=== PATIENT | male | born 1965 | race American Indian/Alaskan Native ===

== ENCOUNTER 2019-09-14 00:11 | Inpatient (IN) | payer MEDICARE ==
[2019-09-14 00:51] LABS: Hematocrit 38.7 % (35.5-45.6); Hemoglobin 13.4 gm/dl (11.8-15.2); Mean Corpuscular HGB Conc 35 % (32-34); Mean Corpuscular Volume 90 fl (84-94); Platelet Count 215 K/mm3 (140-440); Red Blood Count 4.28 M/mm3 (3.65-5.03); Red Cell Distribution Width 14.4 % (13.2-15.2)
[2019-09-14 01:02] LABS: INR 0.93 (0.87-1.13); Partial Thromboplastin Time 29.7 Sec. (24.2-36.6)
[2019-09-14 01:05] LABS: BUN/Creatinine Ratio 12; Blood Urea Nitrogen 11 mg/dL (9-20); Calcium 9.4 mg/dL (8.4-10.2); Hemolysis Index 7
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
[2019-09-14 02:15] LABS: Amphetamine Screen,Urine PRESUMPTIVE NEGATIVE; Benzodiazepines Screen,Urine PRESUMPTIVE NEGATIVE; Cannabinoid Screen,Urine PRESUMPTIVE NEGATIVE; Cocaine Screen,Urine PRESUMPTIVE NEGATIVE; Methadone Screen,Urine PRESUMPTIVE NEGATIVE; Opiate Screen,Urine PRESUMPTIVE NEGATIVE
--- NOTE | 2019-09-14 02:39 | Cat Scan Report ---
CT HEAD WITHOUT CONTRAST INDICATION : Headache. Weakness. TECHNIQUE: Axial, coronal and sagittal CT imaging was performed from the skull apex through the skul l base without contrast. All CT scans at this location are performed using CT dose reduction for ALA RA by means of automated exposure control. COMPARISON: CT head without contrast from 08/31/2015. FINDINGS: PARENCHYMA: No mass, midline shift, hemorrhage, extraaxial collection or acute territorial infarctio n. VENTRICLES: Symmetric and normal in size. SOFT TISSUES: Soft tissues including the orbits appear normal. BONES: No acute osseous abnormality. SINUSES: No significant abnormality. ADDITIONAL FINDINGS: None. IMPRESSION: 1. No acute abnormality. Signer Name: Kameron Villa MD Signed: 09/14/2019 2:34 AM Workstation Name: [email or web address]
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
[2019-09-14 02:47] LABS: Band Neutrophils # (Manual) 0.1 K/mm3; Total Cells Counted 100
[2019-09-14 02:48] LABS: Anisocytosis Few; Large Platelets Few; Ovalocytes Few; Platelet Estimate Cons; Stomatocytes Rare
--- NOTE | 2019-09-14 07:20 | History and Physical Report ---
History of Present Illness Date of examination: 09/14/19 Date of admission: 09/14/19 02:43 Chief complaint: chest pain History of present illness: Patient is a 53-year-old male with past medical history of tobacco use disorder, sinus bradycardia, seizure disorder, diabetes mellitus, prior history of CVA, and acute MA per the patient's but no intervention at the time. Currently on disability secondary to chronic back pain who presents to the ED with complaints of chest pain that was debilitating that prevented him from going to the bathroom made him weak and he had to sit down. EMS was called and he was presented to the hospital the patient denied any syncopal episode at this time he stated at first he could not remember if he passed out but he knew that if he continued to ambulate he would have passed out. During my examination the patient reports improvement in the chest pain with the nitro that he received in the ED. He denies any diaphoresis at this time orthopnea or PND while he is laying down at my examination. Past History Past Medical History: arthritis, diabetes, seizures, other (Gout, chronic back pain) Past Surgical History: cholecystectomy Social history: , smoking Family history: no significant family history Medications and Allergies Allergies Allergy/AdvReac Type Severity Reaction Status Date / Time No Known Allergies Allergy Verified 09/28/15 23:24 Home Medications Medication Instructions Recorded Confirmed Last Taken Type amLODIPine 10 mg PO DAILY 10/02/13 12/28/15 12/27/15 History Meloxicam 15 mg PO QDAY 08/31/15 12/28/15 12/27/15 History Tizanidine HCl [tiZANidine] 10 mg PO DAILY 08/31/15 12/28/15 12/27/15 History HYDROcodone/APAP 10-325 [[place] 1 each PO Q8HR PRN #20 tablet 09/29/15 12/28/15 Unknown Rx 10/325] Lovastatin [Altoprev] 40 mg PO QPM 09/29/15 12/28/15 12/27/15 History Ciprofloxacin HCl [Ciprofloxacin 500 mg PO Q12H #20 tab 12/28/15 Unknown Rx TAB] hydroCHLOROthiazide [HCTZ] 25 mg PO QDAY 12/28/15 12/28/15 12/27/15 History metroNIDAZOLE [Flagyl] 500 mg PO Q8HR #30 tablet 12/28/15 Unknown Rx Review of Systems Constitutional: fatigue, weakness, no weight loss, no weight gain, no fever, no sweats, no malaise, no lethargy Cardiovascular: chest pain, shortness of breath, dyspnea on exertion, no palpitations, no edema, no syncope, no paroxysmal nocturnal dyspnea, no high blood pressure Respiratory: shortness of breath, dyspnea on exertion, no cough with sputum, no hemoptysis, no wheezing, no pleurisy, no pain on inspiration, no respiratory infections, no home oxygen Gastrointestinal: no vomiting, no constipation, no melena, no early satiety, no indigestion, no dyspepsia/bloating Genitourinary Male: no hematuria, no flank pain, no urinary hesitancy Rectal: no incontinence Musculoskeletal: no shooting arm pain, no low back pain, no muscle weakness Integumentary: no redness, no wounds, no lesions, no acne, no color changes Neurological: no weakness, no numbness, no tingling, no sensory deficit, no hearing difficulties Psychiatric: no sleep disturbances, no change in libido, no suicidal ideation, no anhedonia, no difficulties concentrating Endocrine: no cold intolerance, no excessive thirst, no nocturia, no thyroid mass Hematologic/Lymphatic: no easy bleeding Allergic/Immunologic: no allergic rhinitis, no anaphylaxis Exam - Physical Exam Narrative exam: VITAL SIGNS: Reviewed. GENERAL: The patient appears normally developed, Vital signs as documented. HEAD: No signs of head trauma. EYES: Pupils are equal. Extraocular motions intact. EARS: Hearing grossly intact. MOUTH: Oropharynx is normal. NECK: No adenopathy, no JVD. CHEST: Chest with clear breath sounds bilaterally. No wheezes, rales, or rh onchi. CARDIAC: Regular rate and rhythm. S1 and S2, without murmurs, gallops, or rubs. VASCULAR: No Edema. Peripheral pulses normal and equal in all extremities. ABDOMEN: Soft, non tender and non distended. No rebound or guarding, and no masses palpated. Bowel Sounds normal. MUSCULOSKELETAL: Good range of motion of all major joints. Extremities without clubbing, cyanosis or edema. NEUROLOGIC EXAM: Alert and oriented x 3 No focal sensory or strength deficits. Speech normal. Follows commands. PSYCHIATRIC: Mood normal. SKIN: detial exam as documented in skin assessment - Constitutional Vitals: Temp Pulse Resp BP Pulse Ox 97.9 F 49 L 22 113/63 99 09/14/19 04:46 09/14/19 04:50 09/14/19 04:53 09/14/19 04:45 09/14/19 04:45 Results - Labs CBC & Chem 7: 09/14/19 07:24 09/14/19 07:24 Labs: Laboratory Last Values WBC 5.6 K/mm3 (4.5-11.0) 09/14/19 00:37 RBC 4.28 M/mm3 (3.65-5.03) 09/14/19 00:37 Hgb 13.4 gm/dl (11.8-15.2) 09/14/19 00:37 Hct 38.7 % (35.5-45.6) 09/14/19 00:37 MCV 90 fl (84-94) 09/14/19 00:37 MCH 31 pg (28-32) 09/14/19 00:37 MCHC 35 % (32-34) H 09/14/19 00:37 RDW 14.4 % (13.2-15.2) 09/14/19 00:37 Plt Count 215 K/mm3 (140-440) 09/14/19 00:37 Lymph % (Auto) Calender Runner 09/14/19 00:37 Add Manual Diff Complete 09/14/19 00:37 Total Counted 100 09/14/19 00:37 Seg Neutrophils % Calender Runner 09/14/19 00:37 Seg Neuts % (Manual) 29.0 % (40.0-70.0) L 09/14/19 00:37 Band Neutrophils % 1.0 % 09/14/19 00:37 Lymphocytes % (Manual) 62.0 % (13.4-35.0) H 09/14/19 00:37 Reactive Lymphs % (Man) 0 % 09/14/19 00:37 Monocytes % (Manual) 3.0 % (0.0-7.3) 09/14/19 00:37 Eosinophils % (Manual) 4.0 % (0.0-4.3) 09/14/19 00:37 Basophils % (Manual) 1.0 % (0.0-1.8) 09/14/19 00:37 Metamyelocytes % 0 % 09/14/19 00:37 Myelocytes % 0 % 09/14/19 00:37 Promyelocytes % 0 % 09/14/19 00:37 Blast Cells % 0 % 09/14/19 00:37 Nucleated RBC % Not Reportable 09/14/19 00:37 Seg Neutrophils # Man 1.6 K/mm3 (1.8-7.7) L 09/14/19 00:37 Band Neutrophils # 0.1 K/mm3 09/14/19 00:37 Lymphocytes # (Manual) 3.5 K/mm3 (1.2-5.4) 09/14/19 00:37 Abs React Lymphs (Man) 0.0 K/mm3 09/14/19 00:37 Monocytes # (Manual) 0.2 K/mm3 (0.0-0.8) 09/14/19 00:37 Eosinophils # (Manual) 0.2 K/mm3 (0.0-0.4) 09/14/19 00:37 Basophils # (Manual) 0.1 K/mm3 (0.0-0.1) 09/14/19 00:37 Metamyelocytes # 0.0 K/mm3 09/14/19 00:37 Myelocytes # 0.0 K/mm3 09/14/19 00:37 Promyelocytes # 0.0 K/mm3 09/14/19 00:37 Blast Cells # 0.0 K/mm3 09/14/19 00:37 WBC Morphology Not Reportable 09/14/19 00:37 Hypersegmented Neuts Not Reportable 09/14/19 00:37 Hyposegmented Neuts Not Reportable 09/14/19 00:37 Hypogranular Neuts Not Reportable 09/14/19 00:37 Smudge Cells Not Reportable 09/14/19 00:37 Toxic Granulation Not Reportable 09/14/19 00:37 Toxic Vacuolation Not Reportable 09/14/19 00:37 Dohle Bodies Not Reportable 09/14/19 00:37 Pelger-Huet Anomaly Not Reportable 09/14/19 00:37 Jamar Rods Not Reportable 09/14/19 00:37 Platelet Estimate Cons 09/14/19 00:37 Clumped Platelets Not Reportable 09/14/19 00:37 Plt Clumps, EDTA Not Reportable 09/14/19 00:37 Large Platelets Few 09/14/19 00:37 Giant Platelets Not Reportable 09/14/19 00:37 Platelet Satelliting Not Reportable 09/14/19 00:37 Plt Morphology Comment Not Reportable 09/14/19 00:37 RBC Morphology Not Reportable 09/14/19 00:37 Dimorphic RBCs Not Reportable 09/14/19 00:37 Polychromasia Not Reportable 09/14/19 00:37 Hypochromasia Not Reportable 09/14/19 00:37 Poikilocytosis Not Reportable 09/14/19 00:37 Anisocytosis Few 09/14/19 00:37 Microcytosis Not Reportable 09/14/19 00:37 Macrocytosis Not Reportable 09/14/19 00:37 Spherocytes Not Reportable 09/14/19 00:37 Pappenheimer Bodies Not Reportable 09/14/19 00:37 Sickle Cells Not Reportable 09/14/19 00:37 Target Cells Not Reportable 09/14/19 00:37 Tear Drop Cells Not Reportable 09/14/19 00:37 Ovalocytes Few 09/14/19 00:37 Stomatocytes Rare 09/14/19 00:37 Helmet Cells Not Reportable 09/14/19 00:37 [place] Bodies Not Reportable 09/14/19 00:37 Nelson Rings Not Reportable 09/14/19 00:37 Thao Cells Not Reportable 09/14/19 00:37 Bite Cells Not Reportable 09/14/19 00:37 Crenated Cell Not Reportable 09/14/19 00:37 Elliptocytes Not Reportable 09/14/19 00:37 Acanthocytes (Spur) Not Reportable 09/14/19 00:37 Rouleaux Not Reportable 09/14/19 00:37 Hemoglobin C Crystals Not Reportable 09/14/19 00:37 Schistocytes Not Reportable 09/14/19 00:37 Malaria parasites Not Reportable 09/14/19 00:37 Kartik Bodies Not Reportable 09/14/19 00:37 Hem Pathologist Commnt No 09/14/19 00:37 PT 12.6 Sec. (12.2-14.9) 09/14/19 00:37 INR 0.93 (0.87-1.13) 09/14/19 00:37 APTT 29.7 Sec. (24.2-36.6) 09/14/19 00:37 Sodium 143 mmol/L (137-145) 09/14/19 00:37 Potassium 4.0 mmol/L (3.6-5.0) 09/14/19 00:37 Chloride 107.5 mmol/L (98-107) H 09/14/19 00:37 Carbon Dioxide 24 mmol/L (22-30) 09/14/19 00:37 Anion Gap 16 mmol/L 09/14/19 00:37 BUN 11 mg/dL (9-20) 09/14/19 00:37 Creatinine 0.9 mg/dL (0.8-1.5) 09/14/19 00:37 Estimated GFR > 60 ml/min 09/14/19 00:37 BUN/Creatinine Ratio 12 % 09/14/19 00:37 Glucose 112 mg/dL (75-100) H 09/14/19 00:37 Calcium 9.4 mg/dL (8.4-10.2) 09/14/19 00:37 Troponin T < 0.010 ng/mL (0.00-0.029) 09/14/19 03:35 Urine Opiates Screen Presumptive negative 09/14/19 01:21 Urine Methadone Screen Presumptive negative 09/14/19 01:21 Ur Barbiturates Screen Presumptive negative 09/14/19 01:21 Ur Phencyclidine Scrn Presumptive negative 09/14/19 01:21 Ur Amphetamines Screen Presumptive negative 09/14/19 01:21 U Benzodiazepines Scrn Presumptive negative 09/14/19 01:21 Urine Cocaine Screen Presumptive negative 09/14/19 01:21 U Marijuana (THC) Screen Presumptive negative 09/14/19 01:21 Drugs of Abuse Note Disclamer 09/14/19 01:21 Plasma/Serum Alcohol < 0.01 % (0-0.07) 09/14/19 00:37 Assessment and Plan Assessment and plan: Patient is a 53-year-old male with past medical history of tobacco use disorder, sinus bradycardia, seizure disorder, diabetes mellitus, prior history of CVA, and acute MA per the patient's but no intervention at the time. Currently on disability secondary to chronic back pain who presents to the ED with complaints of chest pain that was debilitating that prevented him from going to the bathroom made him weak and he had to sit down. EMS was called and he was presented to the hospital the patient denied any syncopal episode at this time he stated at first he could not remember if he passed out but he knew that if he continued to ambulate he would have passed out. During my examination the patient reports improvement in the chest pain with the nitro that he received in the ED. He denies any diaphoresis at this time orthopnea or PND while he is laying down at my examination. Atypical chest pain Near syncope HTN GOUT CHRONIC LOW BACK PAIN DM SEIZURE CHRONIC BRADYCARDIA TOBACCO ABUSE PLAN ADMIT TO TELE CARDIOLOGY CONSULT STRESS TEST CONSIDERING RISK FACTORS START HOME MEDS ACCU CHECKS AND INSULIN THERAPY PAIN CONTROL OBTAIN COMPLET HOME MED LIST TO RECONCILE DVT/GI PROPHY PLAN DISCUSSED WITH THE PATIENT. Advance Directives: Yes Plan of care discussed with patient/family: Yes
[2019-09-14 07:40] LABS: Hemoglobin 12.8 gm/dl (11.8-15.2); Mean Corpuscular HGB Conc 34 % (32-34); Mean Corpuscular Volume 91 fl (84-94); Platelet Count 202 K/mm3 (140-440); Red Blood Count 4.18 M/mm3 (3.65-5.03); Red Cell Distribution Width 14.8 % (13.2-15.2)
[2019-09-14 07:53] LABS: BUN/Creatinine Ratio 14; Blood Urea Nitrogen 11 mg/dL (9-20); Calcium 9.1 mg/dL (8.4-10.2); Chol/HDL Ratio 3.55 %; HDL Cholesterol 43 mg/dL (40-59); Hemolysis Index 92; LDL Cholesterol,Direct 103 mg/dL (50-130)
[2019-09-14 09:23] LABS: Basophils % (Manual) 0 % (0.0-1.8); Total Cells Counted 100
[2019-09-14 09:24] LABS: Anisocytosis Few; Ovalocytes Few
[2019-09-14 09:35] LABS: Large Platelets Few; Platelet Estimate Consistent w Auto
[2019-09-14] MEDS ORDERED: REGADENOSON 0.4 MG/5 ML INJ IV ONE ×2 (09:51)
[2019-09-14] MEDS ORDERED: MELOXICAM 15 MG PO SCH (10:00)
[2019-09-14] MEDS ORDERED: TIZANIDINE HCL PO SCH (10:00)
--- NOTE | 2019-09-14 10:48 | Consultation ---
History of Present Illness Consult date: 09/14/19 Consult reason: chest pain History of present illness: This is a 53- year old man who presents with chest pain. Chest pain is poorly characterized, nonexertional chest pain. In addition, patient reports transient inability to move his lower extremities and dizziness. He denies syncope. Head CT reports no acute intracranial abnormalities. Chest x-ray is negative. Cardiac isoenzymes are normal and her ECG is sinus bradycardia, otherwise no acute ischemic changes. Patient was admitted and is planned for a persantine thallium stress test. Cardiac consultation has been requested. Patient has a long standing history of sinus bradycardia. He is not on any AV purnima blocking agents. There is no prior history of coronary artery disease. 4 years ago he had a normal thallium stress test and a normal left ventricular systolic function, ejection fraction 50-55% by echocardiogram. He denies history of thyroid disease. Co-morbidities include tobacco abuse, hypertension and hyperlipidemia. Medications and Allergies Allergies Allergy/AdvReac Type Severity Reaction Status Date / Time No Known Allergies Allergy Verified 09/28/15 23:24 Home Medications Medication Instructions Recorded Confirmed Last Taken Type amLODIPine 10 mg PO DAILY 10/02/13 12/28/15 12/27/15 History Meloxicam 15 mg PO QDAY 08/31/15 12/28/15 12/27/15 History Tizanidine HCl [tiZANidine] 10 mg PO DAILY 08/31/15 12/28/15 12/27/15 History HYDROcodone/APAP 10-325 [Merriman 1 each PO Q8HR PRN #20 tablet 09/29/15 12/28/15 Unknown Rx 10/325] Lovastatin [Altoprev] 40 mg PO QPM 09/29/15 12/28/15 12/27/15 History Ciprofloxacin HCl [Ciprofloxacin 500 mg PO Q12H #20 tab 12/28/15 Unknown Rx TAB] hydroCHLOROthiazide [HCTZ] 25 mg PO QDAY 12/28/15 12/28/15 12/27/15 History metroNIDAZOLE [Flagyl] 500 mg PO Q8HR #30 tablet 12/28/15 Unknown Rx Active Meds: Active Medications Acetaminophen/Hydrocodone Bitart (Merriman 10/325) 1 each PO Q8HR PRN PRN Reason: PAIN Amlodipine Besylate (Amlodipine) 10 mg PO DAILY [facility] Aspirin (Baby Aspirin) 81 mg PO QDAY [facility] Atorvastatin Calcium (Lipitor) 40 mg PO QHS [facility] Hydrochlorothiazide (Hctz) 25 mg PO QDAY [facility] Meloxicam (Mobic) 15 mg PO QDAY [facility] Pantoprazole Sodium (Protonix) 40 mg PO QDAY [facility] Sodium Chloride (Sodium Chloride Flush Syringe 10 Ml) 10 ml IV PRN PRN PRN Reason: LINE FLUSH Stop: 09/24/19 07:17 Tizanidine HCl (Zanaflex) 10 mg PO DAILY [facility] Physical Examination Vital Signs Temp Pulse Resp BP Pulse Ox 97.7 F 53 L 14 139/77 98 09/14/19 00:23 09/14/19 00:23 09/14/19 00:23 09/14/19 00:23 09/14/19 00:23 General appearance: no acute distress HEENT: Positive: PERRL Neck: Positive: trachea midline Cardiac: Positive: Reg Rate and Rhythm Lungs: Positive: Decreased Breath Sounds Neuro: Positive: Grossly Intact Extremities: Absent: edema Results 09/14/19 07:24 09/14/19 07:24 Coagulation 09/14/19 Range/Units 00:37 PT 12.6 (12.2-14.9) Sec. INR 0.93 (0.87-1.13) APTT 29.7 (24.2-36.6) Sec. Lipids 09/14/19 Range/Units 07:24 Triglycerides 232 H (2-149) mg/dL Cholesterol 153 (50-199) mg/dL HDL Cholesterol 43 (40-59) mg/dL Cholesterol/HDL Ratio 3.55 % CBC 09/14/19 09/14/19 Range/Units 00:37 07:24 WBC 5.6 4.6 (4.5-11.0) K/mm3 RBC 4.28 4.18 (3.65-5.03) M/mm3 Hgb 13.4 12.8 (11.8-15.2) gm/dl Hct 38.7 38.0 (35.5-45.6) % Plt Count 215 202 (140-440) K/mm3 Comprehensive Metabolic Panel 09/14/19 09/14/19 Range/Units 00:37 07:24 Sodium 143 139 (137-145) mmol/L Potassium 4.0 4.5 (3.6-5.0) mmol/L Chloride 107.5 H 104.9 (98-107) mmol/L Carbon Dioxide 24 21 L (22-30) mmol/L BUN 11 11 (9-20) mg/dL Creatinine 0.9 0.8 (0.8-1.5) mg/dL Glucose 112 H 93 (75-100) mg/dL Calcium 9.4 9.1 (8.4-10.2) mg/dL Assessment and Plan Atypical chest pain Chronic sinus bradycardia Hypertension HLP Tobacco abuse MPI 2015: no ischemia Normal left ventricular systolic function, ejection fraction 50-55% by echocardiogram in 2015. Recommendations. Persantine thallium stress test ordered for today. Results are pending. Avoid AV purnima blocking agents due to long standing sinus bradycardia. Check a TSH.
[2019-09-14] MEDS: tiZANidine TAB 4 MG TAB PO SCH (11:47)
[2019-09-14] MEDS: amLODIPine 10 MG TAB PO SCH (11:47)
[2019-09-14] MEDS: PANTOPRAZOLE 40 MG TAB PO SCH (11:48)
[2019-09-14] MEDS: hydroCHLOROthiazide 25 MG TAB PO SCH (11:48)
[2019-09-14] MEDS: MELOXICAM 7.5 MG TAB PO SCH (11:48)
[2019-09-14] MEDS: HEPARIN 5,000 UNIT/1 ML VIAL SUB-Q SCH ×2 (13:54→21:33)
--- NOTE | 2019-09-14 18:13 | Treadmill Report ---
ORDERING PHYSICIAN: Willie Taveras M.D. INDICATION: Chest pain. FINDINGS: There is evidence of a small size fixed defect in the apical and mid inferior wall. There is also evidence of a small size fixed defect in the basal anterior wall. There is no scintigraphic evidence of myocardial ischemia. The left ventricle is mildly dilated. The left ventricular ejection fraction is measured at 55% with normal wall motion. IMPRESSION: 1. Abnormal myocardial perfusion scan revealing a small fixed basal anterior wall defect and a small fixed apical and mid inferior wall defect with no scintigraphic evidence of myocardial ischemia. 2. Mildly dilated left ventricular cavity with a left ventricular ejection fraction measured at 55%. 3. Clinical correlation is warranted. JOB# [id number] DEEPTI/PHI
[2019-09-14] MEDS: HYDROcodone/ACETAMINOPHEN 10-325MG TAB PO PRN (21:33)
[2019-09-15] MEDS: HEPARIN 5,000 UNIT/1 ML VIAL SUB-Q SCH ×3 (05:41→21:45)
[2019-09-15] MEDS: MELOXICAM 7.5 MG TAB PO SCH (10:01)
[2019-09-15] MEDS: tiZANidine TAB 4 MG TAB PO SCH (10:01)
[2019-09-15] MEDS: PANTOPRAZOLE 40 MG TAB PO SCH (10:01)
--- NOTE | 2019-09-15 10:01 | Progress Note ---
Assessment and Plan 1. Atypical chest pain 2. Essential hypertension 3. Hyperlipidemia 4. Abnormal nuclear cardiac imaging Plan. Given abnormal nuclear cardiac imaging which shows changes when compared to stress MPI scan done 4 years ago as well as a change,i.e decrease in LV ejection fraction, a Left heart catheterization is recommended planned for Tuesday Subjective Date of service: 09/15/19 Interval history: No cardiac symptoms Objective Vital Signs Temp Pulse Resp Resp BP BP Pulse Ox 09/15/19 08:04 99.2 F 46 L 18 123/54 95 09/15/19 05:05 97.6 F 47 L 12 113/52 95 09/15/19 04:00 51 L 18 09/15/19 00:42 98.2 F 49 L 16 119/54 95 09/15/19 00:33 20 09/14/19 22:49 99 09/14/19 20:00 56 L 09/14/19 19:23 98.5 F 55 L 16 113/55 96 09/14/19 17:05 97.9 F 49 L 18 113/49 94 09/14/19 16:25 100 09/14/19 12:00 46 L 09/14/19 11:59 98.2 F 46 L 18 122/53 99 09/14/19 10:30 128/69 09/14/19 10:28 123/62 09/14/19 10:26 128/58 09/14/19 10:25 125/70 09/14/19 10:22 125/74 09/14/19 10:21 143/62 09/14/19 10:11 133/70 - Physical Examination General: Appears Well, No Apparent Distress HEENT: Positive: PERRL Neck: Positive: trachea midline Cardiac: Lungs: Neuro: Positive: Grossly Intact Abdomen: /Rectal: Normal Prostate, No Masses Skin: Musculoskeletal: No Fluid Collection, No Pain, Normal Range of Motion Gait: Normal Gait Extremities: Absent: edema
[2019-09-15] MEDS: amLODIPine 10 MG TAB PO SCH (10:02)
[2019-09-15] MEDS: ASPIRIN 81 MG TAB CHEW PO SCH (10:02)
[2019-09-15] MEDS: hydroCHLOROthiazide 25 MG TAB PO SCH (10:03)
--- NOTE | 2019-09-15 13:13 | Progress Note ---
Assessment and Plan Assessment and plan: Patient is a 53-year-old male with past medical history of tobacco use disorder, sinus bradycardia, seizure disorder, diabetes mellitus, prior history of CVA, and acute ME per the patient's but no intervention at the time. Currently on disability secondary to chronic back pain who presents to the ED with complaints of chest pain that was debilitating that prevented him from going to the bathroom made him weak and he had to sit down. EMS was called and he was presented to the hospital the patient denied any syncopal episode at this time he stated at first he could not remember if he passed out but he knew that if he continued to ambulate he would have passed out. During my exam ination the patient reports improvement in the chest pain with the nitro that he received in the ED. He denies any diaphoresis at this time orthopnea or PND while he is laying down at my examination. 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 START HOME MEDS ACCU CHECKS AND INSULIN THERAPY PAIN CONTROL OBTAIN COMPLETE HOME MED LIST TO RECONCILE DVT/GI PROPHY PLAN DISCUSSED WITH THE PATIENT. History Interval history: Patient seen and examined today resting comfortably no acute distress no recurrent chest pain at this time. Hospitalist Physical - Physical exam Narrative exam: VITAL SIGNS: Reviewed. GENERAL: The patient appears normally developed, Vital signs as documented. HEAD: No signs of head trauma. EYES: Pupils are equal. Extraocular motions intact. EARS: Hearing grossly intact. MOUTH: Oropharynx is normal. NECK: No adenopathy, no JVD. CHEST: Chest with clear breath sounds bilaterally. No wheezes, rales, or rhonchi. CARDIAC: Regular rate and rhythm. S1 and S2, without murmurs, gallops, or rubs. VASCULAR: No Edema. Peripheral pulses normal and equal in all extremities. ABDOMEN: Soft, non tender and non distended. No rebound or guarding, and no masses palpated. Bowel Sounds normal. MUSCULOSKELETAL: Good range of motion of all major joints. Extremities without clubbing, cyanosis or edema. NEUROLOGIC EXAM: Alert and oriented x 3 No focal sensory or strength deficits. Speech normal. Follows commands. PSYCHIATRIC: Mood normal. SKIN: detail exam as documented in skin assessment - Constitutional Vitals: Temp Pulse Resp BP Pulse Ox 99.2 F 50 L 18 123/54 95 09/15/19 08:04 09/15/19 10:02 09/15/19 08:04 09/15/19 10:02 09/15/19 08:04 General appearance: Present: no acute distress Results - Labs CBC & Chem 7: 09/14/19 07:24 12 07:24 Labs: Laboratory Last Values WBC 4.6 K/mm3 (4.5-11.0) 09/14/19 07:24 RBC 4.18 M/mm3 (3.65-5.03) 09/14/19 07:24 Hgb 12.8 gm/dl (11.8-15.2) 09/14/19 07:24 Hct 38.0 % (35.5-45.6) 09/14/19 07:24 MCV 91 fl (84-94) 09/14/19 07:24 MCH 31 pg (28-32) 09/14/19 07:24 MCHC 34 % (32-34) 09/14/19 07:24 RDW 14.8 % (13.2-15.2) 09/14/19 07:24 Plt Count 202 K/mm3 (140-440) 09/14/19 07:24 Lymph % (Auto) Direct Support Staff Member 09/14/19 07:24 Add Manual Diff Complete 09/14/19 07:24 Total Counted 100 09/14/19 07:24 Seg Neutrophils % Direct Support Staff Member 09/14/19 07:24 Seg Neuts % (Manual) 33.0 % (40.0-70.0) L 09/14/19 07:24 Band Neutrophils % 0 % 09/14/19 07:24 Lymphocytes % (Manual) 61.0 % (13.4-35.0) H 09/14/19 07:24 Reactive Lymphs % (Man) 0 % 09/14/19 07:24 Monocytes % (Manual) 2.0 % (0.0-7.3) 09/14/19 07:24 Eosinophils % (Manual) 4.0 % (0.0-4.3) 09/14/19 07:24 Basophils % (Manual) 0 % (0.0-1.8) 09/14/19 07:24 Metamyelocytes % 0 % 09/14/19 07:24 Myelocytes % 0 % 09/14/19 07:24 Promyelocytes % 0 % 09/14/19 07:24 Blast Cells % 0 % 09/14/19 07:24 Nucleated RBC % Not Reportable 09/14/19 07:24 Seg Neutrophils # Man 1.5 K/mm3 (1.8-7.7) L 09/14/19 07:24 Band Neutrophils # 0.0 K/mm3 09/14/19 07:24 Lymphocytes # (Manual) 2.8 K/mm3 (1.2-5.4) 09/14/19 07:24 Abs React Lymphs (Man) 0.0 K/mm3 09/14/19 07:24 Monocytes # (Manual) 0.1 K/mm3 (0.0-0.8) 09/14/19 07:24 Eosinophils # (Manual) 0.2 K/mm3 (0.0-0.4) 09/14/19 07:24 Basophils # (Manual) 0.0 K/mm3 (0.0-0.1) 09/14/19 07:24 Metamyelocytes # 0.0 K/mm3 09/14/19 07:24 Myelocytes # 0.0 K/mm3 09/14/19 07:24 Promyelocytes # 0.0 K/mm3 09/14/19 07:24 Blast Cells # 0.0 K/mm3 09/14/19 07:24 WBC Morphology Not Reportable 09/14/19 07:24 Hypersegmented Neuts Not Reportable 09/14/19 07:24 Hyposegmented Neuts Not Reportable 09/14/19 07:24 Hypogranular Neuts Not Reportable 09/14/19 07:24 Smudge Cells Not Reportable 09/14/19 07:24 Toxic Granulation Not Reportable 09/14/19 07:24 Toxic Vacuolation Not Reportable 09/14/19 07:24 Dohle Bodies Not Reportable 09/14/19 07:24 Pelger-Huet Anomaly Not Reportable 09/14/19 07:24 Jamar Rods Not Reportable 09/14/19 07:24 Platelet Estimate Consistent w auto 09/14/19 07:24 Clumped Platelets Not Reportable 09/14/19 07:24 Plt Clumps, EDTA Not Reportable 09/14/19 07:24 Large Platelets Few 09/14/19 07:24 Giant Platelets Not Reportable 09/14/19 07:24 Platelet Satelliting Not Reportable 09/14/19 07:24 Plt Morphology Comment Not Reportable 09/14/19 07:24 RBC Morphology Not Reportable 09/14/19 07:24 Dimorphic RBCs Not Reportable 09/14/19 07:24 Polychromasia Not Reportable 09/14/19 07:24 Hypochromasia Not Reportable 09/14/19 07:24 Poikilocytosis Not Reportable 09/14/19 07:24 Anisocytosis Few 09/14/19 07:24 Microcytosis Not Reportable 09/14/19 07:24 Macrocytosis Not Reportable 09/14/19 07:24 Spherocytes Not Reportable 09/14/19 07:24 Pappenheimer Bodies Not Reportable 09/14/19 07:24 Sickle Cells Not Reportable 09/14/19 07:24 Target Cells Not Reportable 09/14/19 07:24 Tear Drop Cells Not Reportable 09/14/19 07:24 Ovalocytes Few 09/14/19 07:24 Stomatocytes Rare 09/14/19 00:37 Helmet Cells Not Reportable 09/14/19 07:24 Luciano-Bethesda Bodies Not Reportable 09/14/19 07:24 Parsons Rings Not Reportable 09/14/19 07:24 Thao Cells Not Reportable 09/14/19 07:24 Bite Cells Not Reportable 09/14/19 07:24 Crenated Cell Not Reportable 09/14/19 07:24 Elliptocytes Not Reportable 09/14/19 07:24 Acanthocytes (Spur) Not Reportable 09/14/19 07:24 Rouleaux Not Reportable 09/14/19 07:24 Hemoglobin C Crystals Not Reportable 09/14/19 07:24 Schistocytes Not Reportable 09/14/19 07:24 Malaria parasites Not Reportable 09/14/19 07:24 Kartik Bodies Not Reportable 09/14/19 07:24 Hem Pathologist Commnt No 09/14/19 07:24 PT 12.6 Sec. (12.2-14.9) 09/14/19 00:37 INR 0.93 (0.87-1.13) 09/14/19 00:37 APTT 29.7 Sec. (24.2-36.6) 09/14/19 00:37 Sodium 139 mmol/L (137-145) 09/14/19 07:24 Potassium 4.5 mmol/L (3.6-5.0) 09/14/19 07:24 Chloride 104.9 mmol/L (98-107) 09/14/19 07:24 Carbon Dioxide 21 mmol/L (22-30) L 09/14/19 07:24 Anion Gap 18 mmol/L 09/14/19 07:24 BUN 11 mg/dL (9-20) 09/14/19 07:24 Creatinine 0.8 mg/dL (0.8-1.5) 09/14/19 07:24 Estimated GFR > 60 ml/min 09/14/19 07:24 BUN/Creatinine Ratio 14 % 09/14/19 07:24 Glucose 93 mg/dL (75-100) 09/14/19 07:24 POC Glucose 72 (70-105) 09/15/19 08:10 Calcium 9.1 mg/dL (8.4-10.2) 09/14/19 07:24 Magnesium 2.10 mg/dL (1.7-2.3) 09/14/19 11:18 Troponin T < 0.010 ng/mL (0.00-0.029) 09/14/19 03:35 Triglycerides 232 mg/dL (2-149) H 09/14/19 07:24 Cholesterol 153 mg/dL (50-199) 09/14/19 07:24 LDL Cholesterol Direct 103 mg/dL (50-130) 09/14/19 07:24 HDL Cholesterol 43 mg/dL (40-59) 09/14/19 07:24 Cholesterol/HDL Ratio 3.55 % 09/14/19 07:24 TSH 1.300 mlU/mL (0.270-4.200) 09/14/19 11:18 Free T4 1.08 ng/dL (0.76-1.46) 09/14/19 11:18 Urine Opiates Screen Presumptive negative 09/14/19 01:21 Urine Methadone Screen Presumptive negative 09/14/19 01:21 Ur Barbiturates Screen Presumptive negative 09/14/19 01:21 Ur Phencyclidine Scrn Presumptive negative 09/14/19 01:21 Ur Amphetamines Screen Presumptive negative 09/14/19 01:21 U Benzodiazepines Scrn Presumptive negative 09/14/19 01:21 Urine Cocaine Screen Presumptive negative 09/14/19 01:21 U Marijuana (THC) Screen Presumptive negative 09/14/19 01:21 Drugs of Abuse Note Disclamer 09/14/19 01:21 Plasma/Serum Alcohol < 0.01 % (0-0.07) 09/14/19 00:37 Active Medications - Current Medications Current Medications: Generic Name Dose Route Start Last Admin Trade Name Freq PRN Reason Stop Dose Admin Acetaminophen/Hydrocodone Bitart 1 each 09/14/19 07:20 09/14/19 21:33 Leiter 10/325 PO 1 each Q8HR PRN Administration PAIN Amlodipine Besylate 10 mg 09/14/19 10:00 09/15/19 10:02 Amlodipine PO 10 mg DAILY [facility] Administration Aspirin 81 mg 09/15/19 10:00 09/15/19 10:02 Baby Aspirin PO 81 mg QDAY [facility]HI Administration Atorvastatin Calcium 40 mg 09/14/19 22:00 09/14/19 21:33 Lipitor PO 40 mg QHS [facility]HI Administration Heparin Sodium (Porcine) 5,000 unit 09/14/19 14:00 09/15/19 05:41 Heparin SUB-Q 5,000 unit Q8HR ABHI Administration Hydrochlorothiazide 25 mg 09/14/19 10:00 09/15/19 10:03 Hctz PO 25 mg QDAY ABHI Administration Meloxicam 15 mg 09/14/19 10:00 09/15/19 10:01 Mobic PO Not Given QDAY [facility] Pantoprazole Sodium 40 mg 09/14/19 10:00 09/15/19 10:01 Protonix PO 40 mg QDAY [facility]HI Administration Sodium Chloride 10 ml 09/14/19 07:18 09/15/19 10:05 Sodium Chloride Flush Syringe 10 Ml IV 09/24/19 07:17 10 ml PRN PRN Administration LINE FLUSH Tizanidine HCl 10 mg 09/14/19 10:00 09/15/19 10:01 Zanaflex PO 10 mg DAILY [facility] Administration
[2019-09-15] MEDS: HYDROcodone/ACETAMINOPHEN 10-325MG TAB PO PRN (21:44)
[2019-09-16] MEDS: HEPARIN 5,000 UNIT/1 ML VIAL SUB-Q SCH ×3 (05:31→22:01)
--- NOTE | 2019-09-16 10:21 | Progress Note ---
Assessment and Plan 1. Atypical chest pain 2. Essential hypertension 3. Hyperlipidemia 4. Abnormal nuclear cardiac imaging Plan. Given abnormal nuclear cardiac imaging which shows changes when compared to stress MPI scan done 4 years ago as well as a change,i.e decrease in LV ejection fraction, a Left heart catheterization is recommended planned for Tuesday Subjective Date of service: 09/16/19 Interval history: No cardiac symptoms Objective Vital Signs Temp Pulse Pulse Resp BP Pulse Ox 09/16/19 09:12 96 09/16/19 08:36 98.4 F 53 L 18 113/70 96 09/16/19 05:13 97.8 F 09/16/19 05:12 49 L 20 119/71 100 09/16/19 04:00 49 L 09/16/19 00:05 98.4 F 09/16/19 00:04 50 L 18 119/60 97 09/15/19 22:00 97 09/15/19 20:38 20 09/15/19 20:33 97.4 F L 09/15/19 20:32 53 L 20 104/60 98 09/15/19 20:00 51 L 09/15/19 16:55 97.9 F 48 L 18 114/42 98 09/15/19 16:00 50 L 20 100 09/15/19 12:01 49 L 103/36 98 09/15/19 12:00 47 L - Physical Examination General: Appears Well, No Apparent Distress HEENT: Positive: PERRL Neck: Positive: trachea midline Cardiac: Positive: Regular Rate, S1/S2, PMI, Laterally Displaced Lungs: Positive: clear to auscultation, No Wheeze, Rales, Rhonchi Neuro: Positive: Grossly Intact Abdomen: /Rectal: Normal Prostate, No Masses Skin: Musculoskeletal: No Fluid Collection, No Pain, Normal Range of Motion Gait: Normal Gait Extremities: Absent: edema
[2019-09-16] MEDS ORDERED: SODIUM CHLORIDE 0.9% 500 ML 500 ML IV ONE (11:27)
--- NOTE | 2019-09-16 15:25 | Progress Note ---
Assessment and Plan Assessment and plan: Patient is a 53-year-old male with past medical history of tobacco use disorder, sinus bradycardia, seizure disorder, diabetes mellitus, prior history of CVA, and acute [place] per the patient's but no intervention at the time. Currently on disability secondary to chronic back pain who presents to the ED with complaints of chest pain that was debilitating that prevented him from going to the bathroom made him weak and he had to sit down. EMS was called and he was presented to the hospital the patient denied any syncopal episode at this time he stated at first he could not remember if he passed out but he knew that if he continued to ambulate he would have passed out. During my exam ination the patient reports improvement in the chest pain with the nitro that he received in the ED. He denies any diaphoresis at this time orthopnea or PND while he is laying down at my examination. Atypical chest pain Near syncope HTN GOUT CHRONIC LOW BACK PAIN DM SEIZURE CHRONIC BRADYCARDIA TOBACCO ABUSE PLAN Continue supportive care Request orthostatic vitals. Give 500 bolus of fluid. Hold antihypertensives. 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 START HOME MEDS ACCU CHECKS AND INSULIN THERAPY PAIN CONTROL OBTAIN COMPLETE HOME MED LIST TO RECONCILE DVT/GI PROPHY PLAN DISCUSSED WITH THE PATIENT. History Interval history: Patient seen and examined today resting comfortably no acute distress no recurrent chest pain at this time. This morning complained of slight dizziness. Hospitalist Physical - Physical exam Narrative exam: VITAL SIGNS: Reviewed. GENERAL: The patient appears normally developed, Vital signs as documented. HEAD: No signs of head trauma. EYES: Pupils are equal. Extraocular motions intact. EARS: Hearing grossly intact. MOUTH: Oropharynx is normal. NECK: No adenopathy, no JVD. CHEST: Chest with clear breath sounds bilaterally. No wheezes, rales, or rhonchi. CARDIAC: Regular rate and rhythm. S1 and S2, without murmurs, gallops, or rubs. VASCULAR: No Edema. Peripheral pulses normal and equal in all extremities. ABDOMEN: Soft, non tender and non distended. No rebound or guarding, and no masses palpated. Bowel Sounds normal. MUSCULOSKELETAL: Good range of motion of all major joints. Extremities without clubbing, cyanosis or edema. NEUROLOGIC EXAM: Alert and oriented x 3 No focal sensory or strength deficits. Speech normal. Follows commands. PSYCHIATRIC: Mood normal. SKIN: detail exam as documented in skin assessment - Constitutional Vitals: Temp Pulse Resp BP Pulse Ox 98.4 F 53 L 18 113/70 96 09/16/19 08:36 09/16/19 08:36 09/16/19 08:36 09/16/19 08:36 09/16/19 09:12 General appearance: Present: no acute distress Results - Labs CBC & Chem 7: 09/14/19 07:24 09/14/19 07:24 Labs: Laboratory Last Values WBC 4.6 K/mm3 (4.5-11.0) 09/14/19 07:24 RBC 4.18 M/mm3 (3.65-5.03) 09/14/19 07:24 Hgb 12.8 gm/dl (11.8-15.2) 09/14/19 07:24 Hct 38.0 % (35.5-45.6) 09/14/19 07:24 MCV 91 fl (84-94) 09/14/19 07:24 MCH 31 pg (28-32) 09/14/19 07:24 MCHC 34 % (32-34) 09/14/19 07:24 RDW 14.8 % (13.2-15.2) 09/14/19 07:24 Plt Count 202 K/mm3 (140-440) 09/14/19 07:24 Lymph % (Auto) Mold Blower 09/14/19 07:24 Add Manual Diff Complete 09/14/19 07:24 Total Counted 100 09/14/19 07:24 Seg Neutrophils % Mold Blower 09/14/19 07:24 Seg Neuts % (Manual) 33.0 % (40.0-70.0) L 09/14/19 07:24 Band Neutrophils % 0 % 09/14/19 07:24 Lymphocytes % (Manual) 61.0 % (13.4-35.0) H 09/14/19 07:24 Reactive Lymphs % (Man) 0 % 09/14/19 07:24 Monocytes % (Manual) 2.0 % (0.0-7.3) 09/14/19 07:24 Eosinophils % (Manual) 4.0 % (0.0-4.3) 09/14/19 07:24 Basophils % (Manual) 0 % (0.0-1.8) 09/14/19 07:24 Metamyelocytes % 0 % 09/14/19 07:24 Myelocytes % 0 % 09/14/19 07:24 Promyelocytes % 0 % 09/14/19 07:24 Blast Cells % 0 % 09/14/19 07:24 Nucleated RBC % Not Reportable 09/14/19 07:24 Seg Neutrophils # Man 1.5 K/mm3 (1.8-7.7) L 09/14/19 07:24 Band Neutrophils # 0.0 K/mm3 09/14/19 07:24 Lymphocytes # (Manual) 2.8 K/mm3 (1.2-5.4) 09/14/19 07:24 Abs React Lymphs (Man) 0.0 K/mm3 09/14/19 07:24 Monocytes # (Manual) 0.1 K/mm3 (0.0-0.8) 09/14/19 07:24 Eosinophils # (Manual) 0.2 K/mm3 (0.0-0.4) 09/14/19 07:24 Basophils # (Manual) 0.0 K/mm3 (0.0-0.1) 09/14/19 07:24 Metamyelocytes # 0.0 K/mm3 09/14/19 07:24 Myelocytes # 0.0 K/mm3 09/14/19 07:24 Promyelocytes # 0.0 K/mm3 09/14/19 07:24 Blast Cells # 0.0 K/mm3 09/14/19 07:24 WBC Morphology Not Reportable 09/14/19 07:24 Hypersegmented Neuts Not Reportable 09/14/19 07:24 Hyposegmented Neuts Not Reportable 09/14/19 07:24 Hypogranular Neuts Not Reportable 09/14/19 07:24 Smudge Cells Not Reportable 09/14/19 07:24 Toxic Granulation Not Reportable 09/14/19 07:24 Toxic Vacuolation Not Reportable 09/14/19 07:24 Dohle Bodies Not Reportable 09/14/19 07:24 Pelger-Huet Anomaly Not Reportable 09/14/19 07:24 Jamar Rods Not Reportable 09/14/19 07:24 Platelet Estimate Consistent w auto 09/14/19 07:24 Clumped Platelets Not Reportable 09/14/19 07:24 Plt Clumps, EDTA Not Reportable 09/14/19 07:24 Large Platelets Few 09/14/19 07:24 Giant Platelets Not Reportable 09/14/19 07:24 Platelet Satelliting Not Reportable 09/14/19 07:24 Plt Morphology Comment Not Reportable 09/14/19 07:24 RBC Morphology Not Reportable 09/14/19 07:24 Dimorphic RBCs Not Reportable 09/14/19 07:24 Polychromasia Not Reportable 09/14/19 07:24 Hypochromasia Not Reportable 09/14/19 07:24 Poikilocytosis Not Reportable 09/14/19 07:24 Anisocytosis Few 09/14/19 07:24 Microcytosis Not Reportable 09/14/19 07:24 Macrocytosis Not Reportable 09/14/19 07:24 Spherocytes Not Reportable 09/14/19 07:24 Pappenheimer Bodies Not Reportable 09/14/19 07:24 Sickle Cells Not Reportable 09/14/19 07:24 Target Cells Not Reportable 09/14/19 07:24 Tear Drop Cells Not Reportable 09/14/19 07:24 Ovalocytes Few 09/14/19 07:24 Stomatocytes Rare 09/14/19 00:37 Helmet Cells Not Reportable 09/14/19 07:24 [place] Bodies Not Reportable 09/14/19 07:24 [place] Rings Not Reportable 09/14/19 07:24 [place] Cells Not Reportable 09/14/19 07:24 Bite Cells Not Reportable 09/14/19 07:24 Crenated Cell Not Reportable 09/14/19 07:24 Elliptocytes Not Reportable 09/14/19 07:24 Acanthocytes (Spur) Not Reportable 09/14/19 07:24 Rouleaux Not Reportable 09/14/19 07:24 Hemoglobin C Crystals Not Reportable 09/14/19 07:24 Schistocytes Not Reportable 09/14/19 07:24 Malaria parasites Not Reportable 09/14/19 07:24 Kartik Bodies Not Reportable 09/14/19 07:24 Hem Pathologist Commnt No 09/14/19 07:24 PT 12.6 Sec. (12.2-14.9) 09/14/19 00:37 INR 0.93 (0.87-1.13) 09/14/19 00:37 APTT 29.7 Sec. (24.2-36.6) 09/14/19 00:37 Sodium 139 mmol/L (137-145) 09/14/19 07:24 Potassium 4.5 mmol/L (3.6-5.0) 09/14/19 07:24 Chloride 104.9 mmol/L (98-107) 09/14/19 07:24 Carbon Dioxide 21 mmol/L (22-30) L 09/14/19 07:24 Anion Gap 18 mmol/L 09/14/19 07:24 BUN 11 mg/dL (9-20) 09/14/19 07:24 Creatinine 0.8 mg/dL (0.8-1.5) 09/14/19 07:24 Estimated GFR > 60 ml/min 09/14/19 07:24 BUN/Creatinine Ratio 14 % 09/14/19 07:24 Glucose 93 mg/dL (75-100) 09/14/19 07:24 POC Glucose 82 (70-105) 09/16/19 11:28 Calcium 9.1 mg/dL (8.4-10.2) 09/14/19 07:24 Magnesium 2.10 mg/dL (1.7-2.3) 09/14/19 11:18 Troponin T < 0.010 ng/mL (0.00-0.029) 09/14/19 03:35 Triglycerides 232 mg/dL (2-149) H 09/14/19 07:24 Cholesterol 153 mg/dL (50-199) 09/14/19 07:24 LDL Cholesterol Direct 103 mg/dL (50-130) 09/14/19 07:24 HDL Cholesterol 43 mg/dL (40-59) 09/14/19 07:24 Cholesterol/HDL Ratio 3.55 % 09/14/19 07:24 TSH 1.300 mlU/mL (0.270-4.200) 09/14/19 11:18 Free T4 1.08 ng/dL (0.76-1.46) 09/14/19 11:18 Urine Opiates Screen Presumptive negative 09/14/19 01:21 Urine Methadone Screen Presumptive negative 09/14/19 01:21 Ur Barbiturates Screen Presumptive negative 09/14/19 01:21 Ur Phencyclidine Scrn Presumptive negative 09/14/19 01:21 Ur Amphetamines Screen Presumptive negative 09/14/19 01:21 U Benzodiazepines Scrn Presumptive negative 09/14/19 01:21 Urine Cocaine Screen Presumptive negative 09/14/19 01:21 U Marijuana (THC) Screen Presumptive negative 09/14/19 01:21 Drugs of Abuse Note Disclamer 09/14/19 01:21 Plasma/Serum Alcohol < 0.01 % (0-0.07) 09/14/19 00:37 Active Medications - Current Medications Current Medications: Generic Name Dose Route Start Last Admin Trade Name Freq PRN Reason Stop Dose Admin Acetaminophen/Hydrocodone Bitart 1 each 09/14/19 07:20 09/15/19 21:44 [place] 10/325 PO 1 each Q8HR PRN Administration PAIN Aspirin 81 mg 09/15/19 10:00 09/15/19 10:02 Baby Aspirin PO 81 mg QDAY ABHI Administration Atorvastatin Calcium 40 mg 09/14/19 22:00 09/15/19 21:45 Lipitor PO 40 mg QHS ABHI Administration Heparin Sodium (Porcine) 5,000 unit 09/14/19 14:00 09/16/19 05:31 Heparin SUB-Q 5,000 unit Q8HR ABHI Administration Meloxicam 15 mg 09/14/19 10:00 09/15/19 10:01 Mobic PO Not Given QDAY ABHI Pantoprazole Sodium 40 mg 09/14/19 10:00 09/15/19 10:01 Protonix PO 40 mg QDAY ABHI Administration Sodium Chloride 10 ml 09/14/19 07:18 09/15/19 10:05 Sodium Chloride Flush Syringe 10 Ml IV 09/24/19 07:17 10 ml PRN PRN Administration LINE FLUSH Tizanidine HCl 10 mg 09/14/19 10:00 09/15/19 10:01 Zanaflex PO 10 mg DAILY ABHI Administration
[2019-09-16] MEDS: ASPIRIN 81 MG TAB CHEW PO SCH (17:59)
[2019-09-16] MEDS: tiZANidine TAB 4 MG TAB PO SCH (17:59)
[2019-09-16] MEDS: MELOXICAM 7.5 MG TAB PO SCH (17:59)
[2019-09-16] MEDS: PANTOPRAZOLE 40 MG TAB PO SCH (18:01)
[2019-09-16] MEDS: HYDROcodone/ACETAMINOPHEN 10-325MG TAB PO PRN (18:07)
[2019-09-16] MEDS ORDERED: SODIUM CHLORIDE 0.9% 500 ML 500 ML ONE (18:08)
[2019-09-17 04:45] VITALS: BP 115/64
[2019-09-17] MEDS: HEPARIN 5,000 UNIT/1 ML VIAL SUB-Q SCH (06:06)
[2019-09-17 07:27] LABS: Hematocrit 38.5 % (35.5-45.6); Hemoglobin 13.1 gm/dl (11.8-15.2); Mean Corpuscular HGB Conc 34 % (32-34); Mean Corpuscular Volume 90 fl (84-94); Platelet Count 197 K/mm3 (140-440); Red Blood Count 4.27 M/mm3 (3.65-5.03); Red Cell Distribution Width 14.3 % (13.2-15.2)
[2019-09-17 07:33] LABS: INR 0.92 (0.87-1.13)
[2019-09-17] MEDS ORDERED: SODIUM CHLORIDE 0.9% 500 ML 500 ML ONE (08:13)
[2019-09-17] MEDS ORDERED: ASPIRIN EC 81 MG TAB PO ONE (08:13)
[2019-09-17] MEDS: amLODIPine 10 MG TAB PO SCH (08:14)
[2019-09-17] MEDS: hydroCHLOROthiazide 25 MG TAB PO SCH (08:15)
[2019-09-17] MEDS: ASPIRIN EC 81 MG TAB PO SCH ×2 (08:53→13:35)
[2019-09-17 08:56] LABS: Anisocytosis Few; Platelet Estimate Consistent w Auto; Total Cells Counted 100
[2019-09-17] MEDS ORDERED: HEPARIN/NS 5000 UNIT/500ML 1,000 ML IR ONE (09:01)
[2019-09-17] MEDS ORDERED: VERAPAMIL 5 MG/2 ML INJ ONE (09:02)
[2019-09-17] MEDS: LIDOCAINE (2%) 20 MG/1 ML VIAL 20 ML MDV INFILTRATI ONE ×2 (09:07→09:31)
[2019-09-17] MEDS: MIDAZOLAM 2 MG/2 ML INJ ONE ×2 (09:30→10:04)
[2019-09-17] MEDS: fentaNYL 100 MCG/2 ML INJ ONE ×2 (09:30→10:04)
[2019-09-17] MEDS: HEPARIN 10,000 UNITS/10 ML VIAL ONE ×2 (09:31→10:07)
[2019-09-17] MEDS: NITROGLYCERIN SYRINGE 3 ML ONE ×2 (09:32→10:07)
--- NOTE | 2019-09-17 10:43 | Event Note ---
Date: 09/17/19 Patient was ordered for a cardiac catheterization for further evaluation of chest pain and abnormal thallium stress test. Cardiac catheterization completed successfully via the right radial approach, no complications. Findings: 1. Angiographically normal coronary arteries. 2. Left ventricle systolic function of the lower limits of normal, ejection fraction 50%. Recommendations: No further cardiac ischemic workup is indicated, recommend risk factor modification. 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 Avoid AV purnima blocking agents for hypertension management. Stable for cardiac discharge.
[2019-09-17] MEDS ORDERED: SODIUM CHLORIDE 0.9% 1000 ML 1,000 ML IV SCH (10:45)
--- NOTE | 2019-09-17 11:10 | Cardiac Catherization Report ---
CARDIAC CATHETERIZATION REPORT REASON FOR PROCEDURE: Chest pain. PROCEDURES: 1. Left heart catheterization. 2. Selective left and right coronary angiography. 3. Left ventricular angiography. 4. Sedation time start 1004 hours, end 1022 hours. DESCRIPTION OF PROCEDURE: The patient was prepped and draped in a sterile fashion after informed consent. The right radial cath site was prepped and draped after a negative Dionisio's test. The right radial artery was entered using Seldinger technique, followed by placement of a 6-Austrian hydrophilic sheath. Routine radial cocktail was administered via the sheath. Selective left and right coronary angiography was performed using a #3.5 left Ja and a #4 right Ja. A pigtail catheter was used for left ventricle angiography. The catheters were removed, sheath removed, and hemostasis achieved using a TR band. The patient was returned to the post-procedure unit in stable condition. There were no complications. FINDINGS: HEMODYNAMICS: Left ventricular end-diastolic pressure was 24, following coronary angiography. Ascending aortic pressure 124/85. There was no significant pressure gradient on pullback across the aortic valve. CORONARY ANGIOGRAPHY: Left main coronary artery was angiographically normal. Left anterior descending artery and its diagonal branches were angiographically normal. The circumflex artery and its obtuse marginal branches were angiographically normal. The right coronary artery was dominant and similarly angiographically normal. Left ventricular systolic function was at lower limits of normal, estimated ejection fraction 50%. CONCLUSIONS: 1. Angiographically normal coronary arteries. 2. Normal left ventricular systolic function, ejection fraction 50%. RECOMMENDATION: Risk factor modification and medical therapy. JOB# [id number] INGRID/NTS
--- NOTE | 2019-09-17 12:32 | Discharge Summary ---
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 Currently on disability secondary to chronic back pain who presents to the ED with complaints of chest pain that was debilitating that prevented him from going to the bathroom made him weak and he had to sit down. EMS was called and he was presented to the hospital the patient denied any syncopal episode at this time he stated at first he could not remember if he passed out but he knew that if he continued to ambulate he would have passed out. During my examination the patient reports improvement in the chest pain with the nitro that he received in the ED. He denies any diaphoresis at this time orthopnea or PND while he is laying down at my examination. * Patient had a positive stress test and underwent cardiac catheterization which at this time was negative * Cardiology evaluated the patient and per their documentation * Patient was ordered for a cardiac catheterization for further evaluation of chest pain and abnormal thallium stress test. Cardiac catheterization completed successfully via the right radial approach, no complications. Findings: 1. Angiographically normal coronary arteries. 2. Left ventricle systolic function of the lower limits of normal, ejection fraction 50%. Recommendations: No further cardiac ischemic workup is indicated, recommend risk factor modification. 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 Avoid AV purnima blocking agents for hypertension management. Stable for cardiac discharge. Blood pressure medications were adjusted due to hypotension also. Atypical chest pain Near syncope Hypotension HTN GOUT CHRONIC LOW BACK PAIN DM SEIZURE CHRONIC BRADYCARDIA TOBACCO ABUSE Disposition: TO HOME OR SELFCARE Time spent for discharge: 35 minutes Core Measure Documentation - Palliative Care Palliative Care/ Comfort Measures: Not Applicable - Core Measures Any of the following diagnoses?: none Exam - Physical Exam Narrative exam: VITAL SIGNS: Reviewed. GENERAL: The patient appears normally developed, Vital signs as documented. HEAD: No signs of head trauma. EYES: Pupils are equal. Extraocular motions intact. EARS: Hearing grossly intact. MOUTH: Oropharynx is normal. NECK: No adenopathy, no JVD. CHEST: Chest with clear breath sounds bilaterally. No wheezes, rales, or rhonchi. CARDIAC: Regular rate and rhythm. S1 and S2, without murmurs, gallops, or rubs. VASCULAR: No Edema. Peripheral pulses normal and equal in all extremities. ABDOMEN: Soft, non tender and non distended. No rebound or guarding, and no masses palpated. Bowel Sounds normal. MUSCULOSKELETAL: Good range of motion of all major joints. Extremities without clubbing, cyanosis or edema. NEUROLOGIC EXAM: Alert and oriented x 3 No focal sensory or strength deficits. Speech normal. Follows commands. PSYCHIATRIC: Mood normal. 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 Avoid AV purnima blocking agents for hypertension management. Follow up with: NEENA FAUSTIN MD [Staff Physician] - 7 Days PRIMARY CARE, [Primary Care Provider] - 3-5 Days Forms: CardCath PCI D/C Instructions Prescriptions: AtorvaSTATin [Lipitor] 40 mg PO QHS #30 tablet Aspirin EC [Halfprin EC] 81 mg PO QDAY #30 tablet
[2019-09-17] MEDS: PANTOPRAZOLE 40 MG TAB PO SCH (14:10)
[2019-09-17] MEDS: tiZANidine TAB 4 MG TAB PO SCH (14:10)
[2019-09-17] MEDS: MELOXICAM 7.5 MG TAB PO SCH (14:10)
== END 2019-09-17 15:30 | disposition home or self-care (01) | DRG 206 ==
LOC: ED 00:11 → 4A 02:43 → OBSVTOIN 14:43
PROVIDERS: ADMIT Internal Medicine Geriatric Medicine; ATTEND Internal Medicine
PROC: 4A023N7 Measurement of Cardiac Sampling and Pressure, Left Heart, Percutaneous Approach (ICD-10-PCS; principal; 2019-09-17)
PROC: B2111ZZ Fluoroscopy of Multiple Coronary Arteries using Low Osmolar Contrast (ICD-10-PCS; 2019-09-17)
PROC: B2151ZZ Fluoroscopy of Left Heart using Low Osmolar Contrast (ICD-10-PCS; 2019-09-17)
DX: M94.0 Chondrocostal junction syndrome [Tietze] (principal); R00.1 Bradycardia, unspecified; R55 Syncope and collapse; I10 Essential (primary) hypertension; M10.9 Gout, unspecified; E11.8 Type 2 diabetes mellitus with unspecified complications; G40.909 Epilepsy, unspecified, not intractable, without status epilepticus; F17.200 Nicotine dependence, unspecified, uncomplicated; E78.5 Hyperlipidemia, unspecified; G89.29 Other chronic pain; M19.90 Unspecified osteoarthritis, unspecified site; J44.9 Chronic obstructive pulmonary disease, unspecified; I95.9 Hypotension, unspecified; M54.5 Low back pain; Z79.899 Other long term (current) drug therapy; Z86.73 Personal history of transient ischemic attack (TIA), and cerebral infarction without residual deficits; I25.2 Old myocardial infarction; Z90.49 Acquired absence of other specified parts of digestive tract; Z72.89 Other problems related to lifestyle
CPT/HCPCS: 36415; 70450; 71045; 78452; 80048; 80061; 80307; 80320; 82962; 83735; 84439; 84443; 84484; 85007; 85025; 85027; 85610; 85730; 93005; 93010; 93017; 93458; 94760; 96374; 99406; G0378; A9270-GY; A9502; C1894; G0480; J1644; J2250; J2785; J3010; J7040; Q9967

== ENCOUNTER 2019-11-20 09:06 | Emergency (ER) | payer MEDICARE ==
[2019-11-20 10:12] LABS: Basophils % (Auto) 0.3 % (0.0-1.8); Eosinophils # (Auto) 0.1 K/mm3 (0.0-0.4); Eosinophils % (Auto) 0.9 % (0.0-4.3); Hematocrit 42.6 % (35.5-45.6); Hemoglobin 14.3 gm/dl (11.8-15.2); Lymphocytes # (Auto) 2.3 K/mm3 (1.2-5.4); Lymphocytes % (Auto) 42.8 % (13.4-35.0); Mean Corpuscular HGB Conc 34 % (32-34); Mean Corpuscular Volume 91 fl (84-94); Monocytes # (Auto) 0.3 K/mm3 (0.0-0.8); Monocytes % (Auto) 5.7 % (0.0-7.3); Platelet Count 218 K/mm3 (140-440); Red Blood Count 4.67 M/mm3 (3.65-5.03); Red Cell Distribution Width 14.2 % (13.2-15.2)
[2019-11-20 10:16] LABS: Alanine Aminotransferase 14 units/L (7-56); Albumin 4.1 g/dL (3.9-5); BUN/Creatinine Ratio 10; Blood Urea Nitrogen 11 mg/dL (9-20); Calcium 9.4 mg/dL (8.4-10.2); Hemolysis Index 15
[2019-11-20 10:46] LABS: Bilirubin,Urine Negative (Negative); Blood,Urine 1+ (Negative); Color,Urine Yellow (Yellow)
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
[2019-11-20] MEDS ORDERED: PANTOPRAZOLE 40 MG INJ IV ONE (13:02)
[2019-11-20] MEDS ORDERED: ONDANSETRON 4 MG/2 ML INJ IV ONE (13:02)
[2019-11-20] MEDS ORDERED: MORPHINE 4 MG/1 ML INJ IV ONE (13:02)
[2019-11-20] MEDS ORDERED: SODIUM CHLORIDE 0.9% 1000 ML 1,000 ML IV ONE (13:02)
--- NOTE | 2019-11-20 15:31 | Cat Scan Report ---
{null, CT ABDOMEN AND PELVIS WITH CONTRAST INDICATION: Abdominal pain, constipation. Additional history: Vomiting. COMPARISON: Acute abdominal series from earlier today. TECHNIQUE: Axial, coronal and sagittal CT imaging of the abdomen and pelvis was performed after inje ction of 100 cc Omnipaque [address] scans at this location are performed using CT dose re duction for ALARA by means of automated exposure control. FINDINGS: LOWER CHEST: No significant abnormality. LIVER: No significant abnormality. BILIARY: Prior cholecystectomy. No biliary ductal dilatation. PANCREAS: No significant abnormality. SPLEEN: No significant abnormality. ADRENALS: No significant abnormality. KIDNEYS AND URETERS: No significant abnormality. GI TRACT: No significant abnormality of the stomach or small bowel. The colon contains a large amount of stool with generalized diverticulosis without evidence of diverticulitis. Unremarkable appendix. PERITONEUM: No free fluid. No free air. No fluid collection. LYMPH NODES: No significant adenopathy. VASCULATURE: There is mild generalized atherosclerosis without an additional significant abnormality. URINARY BLADDER: No significant abnormality. REPRODUCTIVE ORGANS: No significant abnormality. ADDITIONAL FINDINGS: None. SKELETAL SYSTEM: No acute abnormality. Degenerative changes are noted throughout the spine. IMPRESSION: 1. No acute abnormality of the abdomen or pelvis. 2. Findings consistent with constipation. 3. Additional findings as above. Signer Name: Kameron Villa MD Signed: 11/20/2019 3:26 PM Workstation Name: [id number] }
[2019-11-20] MEDS ORDERED: LACTULOSE 20 GM/30 ML ORAL LIQD PO ONE (15:48)
--- NOTE | 2019-11-20 16:03 | Emergency Department Report ---
{null, ED Abdominal Pain HPI - General Chief Complaint: Abdominal Pain Stated Complaint: BOWEL ISSUE Time Seen by Provider: 11/20/19 12:11 Source: patient Mode of arrival: Ambulatory Limitations: No Limitations - History of Present Illness Initial Comments: 53-year-old male with previous cholecystectomy, peptic ulcer disease, chronic back pain not currently on narcotics, hypertension, CAD, diabetes, COPD, and CVA presents to the hospital planing of constipation. Patient has infrequent bowel movements. Had a small amount of hard stool output yesterday. Complains of mid abdominal sharp and intermittent pain worse with palpation. Patient with episodes of red vomitus yesterday but has not had any vomiting since then denies melena or hematochezia. No fever reported. Severity scale (0 -10): 0 - Related Data Home Medications Medication Instructions Recorded Confirmed Last Taken amLODIPine 10 mg PO DAILY 10/02/13 09/14/19 12/27/15 Meloxicam 15 mg PO QDAY 08/31/15 09/14/19 12/27/15 Tizanidine HCl [tiZANidine] 10 mg PO DAILY 08/31/15 09/14/19 12/27/15 Lovastatin [Altoprev] 40 mg PO QPM 09/29/15 09/14/19 12/27/15 Previous Rx's Medication Instructions Recorded Last Taken Type HYDROcodone/APAP 10-325 [[place] 1 each PO Q8HR PRN #20 tablet 09/29/15 Unknown Rx 10-325 mg TAB] Aspirin EC [Halfprin EC] 81 mg PO QDAY #30 tablet 09/17/19 Unknown Rx AtorvaSTATin [Lipitor] 40 mg PO QHS #30 tablet 09/17/19 Unknown Rx Lactulose [Cephulac] 20 gm PO QDAY PRN #150 ml 11/20/19 Unknown Rx Sodium Phosphate,[place]-Dibasic 133 ml [place] DAILY PRN #3 enema 11/20/19 Unknown Rx [Fleet Enema] Allergies Allergy/AdvReac Type Severity Reaction Status Date / Time No Known Allergies Allergy Verified 09/28/15 23:24 ED Review of Systems ROS: Stated complaint: BOWEL ISSUE Other details as noted in HPI Comment: All other systems reviewed and negative ED Past Medical Hx - Past Medical History Hx Hypertension: Yes (SINCE 2006) Hx CVA: Yes Hx Heart Attack/AMI: Yes Hx Congestive Heart Failure: No Hx Diabetes: Yes Hx Seizures: Yes (2000 x1 AND 2010 X1) Hx Asthma: No Hx COPD: Yes Additional medical history: hx of ulcers, chronic back pain , gout low heart rate - Surgical History Hx Cholecystectomy: Yes (2013) - Social History Smoking Status: Current Every Day Smoker Substance Use Type: None - Medications Home Medications: Home Medications Medication Instructions Recorded Confirmed Last Taken Type amLODIPine 10 mg PO DAILY 10/02/13 09/14/19 12/27/15 History Meloxicam 15 mg PO QDAY 08/31/15 09/14/19 12/27/15 History Tizanidine HCl [tiZANidine] 10 mg PO DAILY 08/31/15 09/14/19 12/27/15 History HYDROcodone/APAP 10-325 [[place] 1 each PO Q8HR PRN #20 tablet 09/29/15 09/14/19 Unknown Rx 10-325 mg TAB] Lovastatin [Altoprev] 40 mg PO QPM 09/29/15 09/14/19 12/27/15 History Aspirin EC [Halfprin EC] 81 mg PO QDAY #30 tablet 09/17/19 Unknown Rx AtorvaSTATin [Lipitor] 40 mg PO QHS #30 tablet 09/17/19 Unknown Rx Lactulose [Cephulac] 20 gm PO QDAY PRN #150 ml 11/20/19 Unknown Rx Sodium Phosphate,[place]-Dibasic 133 ml [place] DAILY PRN #3 enema 11/20/19 Unknown Rx [Fleet Enema] ED Physical Exam - General Limitations: No Limitations - Other Other exam information: General: No acute distress Head: Atraumatic Eyes: normal appearance ENT: Moist mucous membranes Neck: Normal appearance, no midline tenderness Chest: Clear to auscultation bilaterally CV: Regular rate and rhythm Abdomen: Soft, upper abdominal scar from previous cholecystectomy. Normal bowel sounds, mid abdominal tenderness to palpation, nondistended, no rebound or guarding Rectal: Brown stool in rectal vault guaiac negative Back: Normal inspection Extremity: Normal inspection, full range of motion Neuro: Alert O x 3, no facial asymmetry, speech clear, no gross motor sensory deficit Psych: Appropriate behavior Skin: No rash ED Course Vital Signs 11/20/19 11/20/19 11/20/19 09:30 12:54 12:55 Temperature 98.0 F Pulse Rate 57 L 51 L Respiratory 16 Rate Blood Pressure 136/60 Blood Pressure 153/71 136/60 [Right] O2 Sat by Pulse 99 Oximetry 11/20/19 15:00 Temperature Pulse Rate 55 L Respiratory 15 Rate Blood Pressure 127/65 Blood Pressure [Right] O2 Sat by Pulse 93 Oximetry ED Medical Decision Making - Lab Data Result diagrams: 11/20/19 09:43 11/20/19 09:43 Lab Results 11/20/19 11/20/19 11/20/19 Range/Units 09:43 09:43 10:15 WBC 5.4 (4.5-11.0) K/mm3 RBC 4.67 (3.65-5.03) M/mm3 Hgb 14.3 (11.8-15.2) gm/dl Hct 42.6 (35.5-45.6) % MCV 91 (84-94) fl MCH 31 (28-32) pg MCHC 34 (32-34) % RDW 14.2 (13.2-15.2) % Plt Count 218 (140-440) K/mm3 Lymph % (Auto) 42.8 H (13.4-35.0) % [place] % (Auto) 5.7 (0.0-7.3) % Eos % (Auto) 0.9 (0.0-4.3) % Baso % (Auto) 0.3 (0.0-1.8) % Lymph # 2.3 (1.2-5.4) K/mm3 [place] # 0.3 (0.0-0.8) K/mm3 Eos # 0.1 (0.0-0.4) K/mm3 Baso # 0.0 (0.0-0.1) K/mm3 Seg Neutrophils % 50.3 (40.0-70.0) % Seg Neutrophils # 2.7 (1.8-7.7) K/mm3 Sodium 139 (137-145) mmol/L Potassium 3.8 (3.6-5.0) mmol/L Chloride 100.3 (98-107) mmol/L Carbon Dioxide 22 (22-30) mmol/L Anion Gap 21 mmol/L BUN 11 (9-20) mg/dL Creatinine 1.1 (0.8-1.5) mg/dL Estimated GFR > 60 ml/min BUN/Creatinine Ratio 10 % Glucose 103 H (75-100) mg/dL Calcium 9.4 (8.4-10.2) mg/dL Total Bilirubin 0.40 (0.1-1.2) mg/dL AST 17 (5-40) units/L ALT 14 (7-56) units/L Alkaline Phosphatase 78 (35-129) units/L Total Protein 7.3 (6.3-8.2) g/dL Albumin 4.1 (3.9-5) g/dL Albumin/Globulin Ratio 1.3 % Urine Color Yellow (Yellow) Urine Turbidity Clear (Clear) Urine pH 6.0 (5.0-7.0) Ur Specific [place] 1.010 (1.003-1.030) Urine Protein 30 mg/dl (Negative) mg/dL Urine Glucose (UA) Negative (Negative) mg/dL Urine Ketones Negative (Negative) mg/dL Urine Blood 1+ (Negative) Urine Nitrite Negative (Negative) Ur Reducing Substances Not Reportable Urine Bilirubin Negative (Negative) Urine Ictotest Not Reportable Urine Urobilinogen 2.0 (<2.0) mg/dL Ur Leukocyte Esterase Negative (Negative) Urine WBC (Auto) 1.0 (0.0-6.0) /HPF Urine RBC (Auto) 6.0 (0.0-6.0) /HPF U Epithel Cells (Auto) 1.0 (0-13.0) /HPF - Radiology Data Radiology results: report reviewed (CT abdomen pelvis IV contrast: No acute findings, constipation) - Medical Decision Making Patient treated in the ED with morphine, Zofran, and normal saline. Also see 1 dose of Protonix given report of red vomitus x1. This time we do not have any signs of GI bleed with normal H&H and guaiac negative brown stool on exam. Patient also denies further episodes of vomiting. CT confirms constipation. Patient given 1 dose of lactulose in the ED prior to discharge will be discharged on lactulose and Fleet enema. - Differential Diagnosis Constipation, obstruction, diverticulitis, appendicitis Critical Care Time: No Critical care attestation.: If time is entered above; I have spent that time in minutes in the direct care of this critically ill patient, excluding procedure time. ED Disposition Clinical Impression: Constipation Disposition: DC-01 TO HOME OR SELFCARE Is pt being admited?: No Does the pt Need Aspirin: No Condition: Stable Instructions: Constipation (ED) Additional Instructions: Take the medication as prescribed. Follow-up with your doctor or doctor/clinic provided. Return if symptoms worsen as indicated by your discharge instructions. Prescriptions: Lactulose [Cephulac] 20 gm PO QDAY PRN #150 ml PRN Reason: Constipation Sodium Phosphate,[place]-Dibasic [Fleet Enema] 133 ml [place] DAILY PRN #3 enema PRN Reason: Constipation Referrals: PRIMARY CAREMD [Primary Care Provider] - 3-5 Days ROM BLANK MD [Staff Physician] - 3-5 Days Time of Disposition: 16:04 }
[2019-11-20 16:34] VITALS: BP 120/49
== END 2019-11-20 17:30 | disposition home or self-care (01) ==
LOC: ED 09:06
DX: K59.00 Constipation, unspecified (principal); G89.29 Other chronic pain; I10 Essential (primary) hypertension; I25.10 Atherosclerotic heart disease of native coronary artery without angina pectoris; J44.9 Chronic obstructive pulmonary disease, unspecified; I25.2 Old myocardial infarction; E11.9 Type 2 diabetes mellitus without complications; Z90.49 Acquired absence of other specified parts of digestive tract; Z86.73 Personal history of transient ischemic attack (TIA), and cerebral infarction without residual deficits; Z79.899 Other long term (current) drug therapy; Z86.69 Personal history of other diseases of the nervous system and sense organs
CPT/HCPCS: 36415; 74022; 74177; 80053; 81001; 82271; 85025; 96374; 96375; 99284; C9113; J2270; J2405; J7030; Q9967

== ENCOUNTER 2019-12-08 05:15 | Emergency (ER) | payer MEDICARE ==
[2019-12-08 06:03] LABS: Basophils % (Auto) 0.6 % (0.0-1.8); Eosinophils # (Auto) 0.2 K/mm3 (0.0-0.4); Hematocrit 39.1 % (35.5-45.6); Hemoglobin 13.2 gm/dl (11.8-15.2); Lymphocytes # (Auto) 2.6 K/mm3 (1.2-5.4); Lymphocytes % (Auto) 46.7 % (13.4-35.0); Mean Corpuscular HGB Conc 34 % (32-34); Mean Corpuscular Volume 91 fl (84-94); Monocytes # (Auto) 0.3 K/mm3 (0.0-0.8); Monocytes % (Auto) 5.9 % (0.0-7.3); Platelet Count 220 K/mm3 (140-440); Red Blood Count 4.32 M/mm3 (3.65-5.03); Red Cell Distribution Width 14.2 % (13.2-15.2)
--- NOTE | 2019-12-08 06:13 | Emergency Department Report ---
ED Abdominal Pain HPI - General Chief Complaint: Abdominal Pain Stated Complaint: ABDOMINAL PAIN Time Seen by Provider: 12/08/19 06:12 Source: patient Mode of arrival: Ambulatory Limitations: No Limitations - History of Present Illness Initial Comments: This is a 54-year-old man who arrives with recurrent symptoms. He states he has not followed up since his last time here mid November. He had a CT at that time which showed no acute abnormality. He states he had a bowel movement yesterday and that was normal. Does not complain of constipation this time. He occasionally feels nauseated but not now. He has had no fever or chills. His pain is in the suprapubic area. He has never had a colonoscopy. He denies fever or chills. The last time he was here with similar such symptoms his urinalysis was negative. He states he cannot urinate this time. 11/20/19 CT report: FINDINGS: LOWER CHEST: No significant abnormality. LIVER: No significant abnormality. BILIARY: Prior cholecystectomy. No biliary ductal dilatation. PANCREAS: No significant abnormality. SPLEEN: No significant abnormality. ADRENALS: No significant abnormality. KIDNEYS AND URETERS: No significant abnormality. GI TRACT: No significant abnormality of the stomach or small bowel. The colon contains a large amount of stool with generalized diverticulosis without evidence of diverticulitis. Unremarkable appendix. PERITONEUM: No free fluid. No free air. No fluid collection. LYMPH NODES: No significant adenopathy. VASCULATURE: There is mild generalized atherosclerosis without an additional significant abnormality. URINARY BLADDER: No significant abnormality. REPRODUCTIVE ORGANS: No significant abnormality. ADDITIONAL FINDINGS: None. SKELETAL SYSTEM: No acute abnormality. Degenerative changes are noted throughout the spine. IMPRESSION: 1. No acute abnormality of the abdomen or pelvis. 2. Findings consistent with constipation. 3. Additional findings as above. MD Complaint: abdominal pain -: Gradual, month(s) Location: periumbilical (/Suprapubic) Radiation: none Migration to: no migration Quality: aching Consistency: intermittent Improves With: nothing Worsens With: nothing Associated Symptoms: denies other symptoms - Related Data Home Medications Medication Instructions Recorded Confirmed Last Taken amLODIPine 10 mg PO DAILY 10/02/13 09/14/19 12/27/15 Meloxicam 15 mg PO QDAY 08/31/15 09/14/19 12/27/15 Tizanidine HCl [tiZANidine] 10 mg PO DAILY 08/31/15 09/14/19 12/27/15 Lovastatin [Altoprev] 40 mg PO QPM 09/29/15 09/14/19 12/27/15 Previous Rx's Medication Instructions Recorded Last Taken Type HYDROcodone/APAP 10-325 [[place] 1 each PO Q8HR PRN #20 tablet 09/29/15 Unknown Rx 10-325 mg TAB] Aspirin EC [Halfprin EC] 81 mg PO QDAY #30 tablet 09/17/19 Unknown Rx AtorvaSTATin [Lipitor] 40 mg PO QHS #30 tablet 09/17/19 Unknown Rx Lactulose [Cephulac] 20 gm PO QDAY PRN #150 ml 11/20/19 Unknown Rx Sodium Phosphate,[place]-Dibasic 133 ml [place] DAILY PRN #3 enema 11/20/19 Unknown Rx [Fleet Enema] Lansoprazole 30 mg PO QDAY #20 capsule. 12/08/19 Unknown Rx traMADoL [Ultram 50 MG tab] 50 mg PO Q6HR PRN #10 tablet 12/08/19 Unknown Rx Allergies Allergy/AdvReac Type Severity Reaction Status Date / Time No Known Allergies Allergy Verified 09/28/15 23:24 ED Review of Systems ROS: Stated complaint: ABDOMINAL PAIN Other details as noted in HPI Constitutional: denies: chills, fever Eyes: denies: eye pain, eye discharge, vision change ENT: denies: ear pain, throat pain Respiratory: denies: cough, shortness of breath, wheezing Cardiovascular: denies: chest pain, palpitations Endocrine: no symptoms reported Gastrointestinal: abdominal pain. denies: nausea, diarrhea Genitourinary: denies: urgency, dysuria Musculoskeletal: denies: back pain, joint swelling, arthralgia Skin: denies: rash, lesions Neurological: denies: headache, weakness, paresthesias Psychiatric: denies: anxiety, depression Hematological/Lymphatic: denies: easy bleeding, easy bruising ED Past Medical Hx - Past Medical History Previous Medical History?: Yes Hx Hypertension: Yes (SINCE 2006) Hx CVA: Yes Hx Heart Attack/AMI: Yes Hx Congestive Heart Failure: No Hx Diabetes: Yes Hx Seizures: Yes (2000 x1 AND 2010 X1) Hx Asthma: No Hx COPD: Yes Additional medical history: hx of ulcers, chronic back pain , gout low heart rate - Surgical History Hx Cholecystectomy: Yes (2013) - Social History Smoking Status: Current Every Day Smoker Substance Use Type: None - Medications Home Medications: Home Medications Medication Instructions Recorded Confirmed Last Taken Type amLODIPine 10 mg PO DAILY 10/02/13 09/14/19 12/27/15 History Meloxicam 15 mg PO QDAY 08/31/15 09/14/19 12/27/15 History Tizanidine HCl [tiZANidine] 10 mg PO DAILY 08/31/15 09/14/19 12/27/15 History HYDROcodone/APAP 10-325 [[place] 1 each PO Q8HR PRN #20 tablet 09/29/15 09/14/19 Unknown Rx 10-325 mg TAB] Lovastatin [Altoprev] 40 mg PO QPM 09/29/15 09/14/19 12/27/15 History Aspirin EC [Halfprin EC] 81 mg PO QDAY #30 tablet 09/17/19 Unknown Rx AtorvaSTATin [Lipitor] 40 mg PO QHS #30 tablet 09/17/19 Unknown Rx Lactulose [Cephulac] 20 gm PO QDAY PRN #150 ml 11/20/19 Unknown Rx Sodium Phosphate,[place]-Dibasic 133 ml [place] DAILY PRN #3 enema 11/20/19 Unknown Rx [Fleet Enema] Lansoprazole 30 mg PO QDAY #20 capsule. 12/08/19 Unknown Rx traMADoL [Ultram 50 MG tab] 50 mg PO Q6HR PRN #10 tablet 12/08/19 Unknown Rx ED Physical Exam - General Limitations: No Limitations General appearance: alert, in no apparent distress - Head Head exam: Present: atraumatic, normocephalic - Eye Eye exam: Present: normal appearance. Absent: scleral icterus - ENT ENT exam: Present: mucous membranes moist - Neck Neck exam: Present: normal inspection - Respiratory Respiratory exam: Present: normal lung sounds bilaterally. Absent: respiratory distress - Cardiovascular Cardiovascular Exam: Present: regular rate, normal rhythm. Absent: systolic murmur, diastolic murmur, rubs, gallop - GI/Abdominal GI/Abdominal exam: Present: soft, normal bowel sounds. Absent: distended, tenderness, guarding, rebound, rigid - Rectal Rectal exam: Present: deferred - Extremities Exam Extremities exam: Present: normal inspection - Back Exam Back exam: Present: normal inspection - Neurological Exam Neurological exam: Present: alert, oriented X3, CN II-XII intact. Absent: motor sensory deficit - Psychiatric Psychiatric exam: Present: normal affect, normal mood - Skin Skin exam: Present: warm, dry, intact, normal color. Absent: rash ED Course Vital Signs 12/08/19 12/08/19 05:26 06:05 Temperature 98.0 F 97.9 F Pulse Rate 60 60 Respiratory 18 18 Rate Blood Pressure 116/72 Blood Pressure 142/77 [Left] O2 Sat by Pulse 95 98 Oximetry - Reevaluation(s) Reevaluation #1: 54-year-old male with recurrently normal laboratory database and a recent negative CT. He is appropriate for outpatient referral. He will be referred to GI and a local medical clinic. He be placed on lansoprazole as he has a history of ulcer. He is appropriate for outpatient disposition. 12/08/19 07:08 12/08/19 07:10 ED Medical Decision Making - Lab Data Result diagrams: 12/08/19 05:50 12/08/19 05:50 Laboratory Results - last 24 hr 12/08/19 12/08/19 05:50 05:50 WBC 5.5 RBC 4.32 Hgb 13.2 Hct 39.1 MCV 91 MCH 31 MCHC 34 RDW 14.2 Plt Count 220 Lymph % (Auto) 46.7 H [place] % (Auto) 5.9 Eos % (Auto) 4.0 Baso % (Auto) 0.6 Lymph # 2.6 [place] # 0.3 Eos # 0.2 Baso # 0.0 Seg Neutrophils % 42.8 Seg Neutrophils # 2.4 Sodium 144 Potassium 4.3 Chloride 106.9 Carbon Dioxide 25 Anion Gap 16 BUN 15 Creatinine 1.0 Estimated GFR > 60 BUN/Creatinine Ratio 15 Glucose 109 H Calcium 9.4 Total Bilirubin < 0.20 AST 18 ALT 16 Alkaline Phosphatase 89 Total Protein 6.9 Albumin 4.1 Albumin/Globulin Ratio 1.5 Critical care attestation.: If time is entered above; I have spent that time in minutes in the direct care of this critically ill patient, excluding procedure time. ED Disposition Clinical Impression: Abdominal pain Qualifiers: Abdominal location: periumbilical Qualified Code(s): R10.33 - Periumbilical pain Disposition: TO HOME OR SELFCARE Is pt being admited?: No Does the pt Need Aspirin: No Condition: Stable Instructions: Abdominal Pain (ED) Additional Instructions: Further evaluation by GI specialist and follow-up with the primary care physician is recommended. Rx tramadol and lansoprazole. Prescriptions: Lansoprazole 30 mg PO QDAY #20 capsule. traMADoL [Ultram 50 MG tab] 50 mg PO Q6HR PRN #10 tablet PRN Reason: Pain Referrals: [facility] [Provider Group] - 2-3 Days [facility] [Provider Group] - 2-3 Days Time of Disposition: 07:12
[2019-12-08 06:24] LABS: Alanine Aminotransferase 16 units/L (7-56); Albumin 4.1 g/dL (3.9-5); BUN/Creatinine Ratio 15; Blood Urea Nitrogen 15 mg/dL (9-20); Calcium 9.4 mg/dL (8.4-10.2); Hemolysis Index 1
[2019-12-08] MEDS ORDERED: MORPHINE 2 MG/1 ML INJ IV ONE (06:34)
[2019-12-08] MEDS ORDERED: ONDANSETRON 4 MG/2 ML INJ IV ONE (06:34)
[2019-12-08 08:01] VITALS: BP 130/69
== END 2019-12-08 07:45 | disposition home or self-care (01) ==
LOC: ED 05:15
DX: R10.33 Periumbilical pain (principal); I11.0 Hypertensive heart disease with heart failure; I25.2 Old myocardial infarction; E11.9 Type 2 diabetes mellitus without complications; R56.9 Unspecified convulsions; J44.9 Chronic obstructive pulmonary disease, unspecified; G89.29 Other chronic pain; F17.200 Nicotine dependence, unspecified, uncomplicated; Z86.73 Personal history of transient ischemic attack (TIA), and cerebral infarction without residual deficits; Z90.49 Acquired absence of other specified parts of digestive tract; Z79.899 Other long term (current) drug therapy
CPT/HCPCS: 36415; 80053; 85025; 96374; 96375; 99283; J2270; J2405